=== PATIENT | female | born 1960 | race Hispanic/Latino ===

== ENCOUNTER 2021-07-04 23:04 | Inpatient (IN) | payer OTHER, SELFPAY ==
[2021-07-04 23:38] LABS: Hemoglobin 12.5 g/dL (12.0-16.0); Mean Corpuscular HGB CONC 34.6 g/dL (32.0-36.0); Mean Corpuscular Hemoglobin 29.2 pg (27.0-31.0); Mean Corpuscular Volume 84.4 fL (78.0-98.0); Mean Platelet Volume 8.8 fL (7.4-10.4); Platelet Count 209 thou/uL (130-400); RBC Distribution Width 12.4 % (11.5-14.5); Red Blood Cell (RBC) Count 4.26 mill/uL (4.20-5.40); White Blood Cell (WBC) Count 9.4 thou/uL (4.8-10.8)
[2021-07-04 23:42] LABS: Actual Bicarbonate (HCO3v) 21 mEq/L (22-28); Analyzer IN Cardio ER; Base Excess -2.9 mEq/L (-2.0 to +3.0); Calcium, Ionized (venous) 1.12 mmol/L (1.16-1.32); Chloride (VBG) 100 mmol/L (98-106); Hemoglobin (Hb) 12.6 g/dL (11.7-16.0); Potassium (VBG) 4.81 mmol/L (3.70-5.30); Sodium 134.9 mmol/L (133-146); pH (venous) 7.41 (7.32-7.43)
[2021-07-04 23:52] LABS: Band 18 % (5-11); MDiff Complete? YES; Monocytes 15 % (0-10); Neutrophil 67 % (42-75); Platelet Morphology Comment Appears Adequate; RBC Morphology Normal
[2021-07-05 00:03] LABS: ALT (SGPT) 13 U/L (8-55); AST (SGOT) 13 U/L (5-34); Albumin 3.4 g/dL (3.5-5.0); Alkaline Phosphatase 110 U/L (40-110); Anion Gap 14 mmol/L (10-20); BUN (Urea Nitrogen) 45 mg/dL (9.8-20.1); Bilirubin, Total 0.5 mg/dL (0.2-1.2); Calc. Creatinine Clearance 0 mL/min (70-130); Calcium 9.1 mg/dL (7.8-10.44); Carbon Dioxide 24 mmol/L (22-29); Chloride 102 mmol/L (98-107); Globulin 2.6 g/dL (2.4-3.5); Glucose 294 mg/dL (70-105); Lipase 17 U/L (8-78); Magnesium 1.4 mg/dL (1.6-2.6); Sodium 135 mmol/L (136-145)
[2021-07-05 00:24] LABS: Bacteria/HPF 4+ HPF (None Seen); Bilirubin Negative (Negative); Blood, Urine 2+ (Negative); Clarity Turbid (Clear); Glucose, Urine (Dipstick) 500 mg/dL (Negative); Ketone, Urine Trace mg/dL (Negative); Leukocyte 250 Leu/uL (Negative); Nitrite Negative (Negative); Protein, Urine (Dipstick) 600 mg/dL (Neg-Trace); Renal Epithelial 0-3 HPF (None Seen); Specific Gravity, Urine 1.022 (1.002-1.036); Squamous Epithelial 0-3 HPF (0-3); Urobilinogen Normal mg/dL (Less than 2); WBC/HPF Greater than 50 HPF (0-3); pH, Urine 6.5 (5.0-9.0)
[2021-07-05] MEDS ORDERED: Cefepime 2 GM VIAL ONE ×2 (00:24→10:16)
[2021-07-05] MEDS ORDERED: Acetaminophen 500 MG TAB ONE (00:33)
[2021-07-05 00:49] LABS: Phosphorus 2.7 mg/dL (2.3-4.7)
[2021-07-05] MEDS ORDERED: Vancomycin 1 GM/200 ML BAG ONE (01:07)
[2021-07-05] MEDS ORDERED: Magnesium Sulfate 4 GM in Sodium Chloride 0.9% 250 ML 250 ML IVPB SCH (01:30)
[2021-07-05 02:52] LABS: SARS-CoV-2 NAA Rapid Test Not Detected (NotDetected)
[2021-07-05] MEDS ORDERED: Sodium Chloride 0.9% 1,000 ML IV SCH ×3 (03:00→23:45)
[2021-07-05] MEDS ORDERED: Sodium Chloride 0.9% 500 ML IV SCH (03:00)
[2021-07-05] MEDS ORDERED: Dextrose 50% Abboject 50 ML SYRINGE SLOW IVP PRN (03:01)
[2021-07-05] MEDS ORDERED: Dextrose 5% in Water 1,000 ML IV PRN (03:01)
[2021-07-05] MEDS ORDERED: Ondansetron ODT 4 MG TAB PO PRN (03:02)
[2021-07-05] MEDS ORDERED: Acetaminophen 650 MG Suppository PR PRN (03:02)
[2021-07-05 05:11] LABS: Lactic Acid 1.9 mmol/L (0.5-2.2)
[2021-07-05 05:14] LABS: Band 23 % (5-11); Hemoglobin 9.2 g/dL (12.0-16.0); Hypochromia SLIGHT = 6-15 cells (100X) (0-5/hpf); Lymphocytes 10 % (21-51); MDiff Complete? YES; Mean Corpuscular HGB CONC 33.9 g/dL (32.0-36.0); Mean Corpuscular Hemoglobin 28.9 pg (27.0-31.0); Mean Corpuscular Volume 85.4 fL (78.0-98.0); Mean Platelet Volume 8.8 fL (7.4-10.4); Monocytes 3 % (0-10); Neutrophil 64 % (42-75); Platelet Count 210 thou/uL (130-400); Platelet Morphology Comment Appears Adequate; RBC Distribution Width 12.4 % (11.5-14.5); Red Blood Cell (RBC) Count 3.18 mill/uL (4.20-5.40)
[2021-07-05 05:16] LABS: ALT (SGPT) 11 U/L (8-55); AST (SGOT) 12 U/L (5-34); Albumin 2.6 g/dL (3.5-5.0); Alkaline Phosphatase 77 U/L (40-110); Anion Gap 13 mmol/L (10-20); BUN (Urea Nitrogen) 46 mg/dL (9.8-20.1); Bilirubin, Total 0.2 mg/dL (0.2-1.2); Calc. Creatinine Clearance 0 mL/min (70-130); Calcium 8.1 mg/dL (7.8-10.44); Carbon Dioxide 19 mmol/L (22-29); Chloride 107 mmol/L (98-107); Globulin 2.1 g/dL (2.4-3.5); Glucose 244 mg/dL (70-105); Potassium 4.3 mmol/L (3.5-5.1); Protein, Total 4.7 g/dL (6.0-8.3); Sodium 135 mmol/L (136-145)
[2021-07-05 05:23] LABS: Hemoglobin A1c 9.8 % (4.0-6.0)
[2021-07-05] MEDS: Sodium Chloride 0.9% 1,000 ML IV SCH ×2 (05:25→15:00)
[2021-07-05] MEDS: HumaLOG 300 UNITS/3 ML VIAL SC PRN ×3 (05:29→23:12)
[2021-07-05] MEDS: Enoxaparin Sodium 30 MG/0.3 ML SYRINGE SC SCH (08:54)
[2021-07-05] MEDS ORDERED: Heparin 1,000 UNITS/ML VIAL ONE (10:13)
[2021-07-05 10:17] LABS: Creatinine, Urine 114.68 mg/dL (47-110)
[2021-07-05 10:30] LABS: Base Excess (BEa) -6.4 mEq/L (-2.0 to +3.0); CO2 Tension 27.2 mmHg (35.0-45.0); Carboxyhemoglobin (COHb) 0.2 gm% (0.0-3.0); O2 Tension (PaO2), arterial 60.2 mmHg (80.0-100.0); Potassium - ABG Lab 4.76 mmol/L (3.70-5.30); pH, Arterial 7.41 (7.35-7.45)
[2021-07-05 10:31] LABS: Puncture Site LRA
[2021-07-05] MEDS ORDERED: Sodium Bicarbonate 150 MEQ in Dextrose 5% in Water 1,000 ML IV SCH (10:45)
[2021-07-05 11:57] LABS: Actual Bicarbonate (HCO3v) 19 mEq/L (22-28); Base Excess -6.1 mEq/L (-2.0 to +3.0); Calcium, Ionized (venous) 1.07 mmol/L (1.16-1.32); Chloride (VBG) 103 mmol/L (98-106); Hemoglobin (Hb) 11.2 g/dL (11.7-16.0); Potassium (VBG) 5.14 mmol/L (3.70-5.30); Sodium 133.2 mmol/L (133-146); pH (venous) 7.36 (7.32-7.43)
[2021-07-05] MEDS: Acetaminophen 325 MG TAB PO PRN (13:30)
[2021-07-05] MEDS ORDERED: Norepinephrine 4 MG/4 ML VIAL ONE (14:11)
[2021-07-05] MEDS ORDERED: Norepinephrine 8 MG in Dextrose 5% in Water 242 ML IVPB PRN (14:15)
[2021-07-05 14:29] LABS: Actual Bicarbonate (HCO3a) 19.1 mEq/L (22-28); CO2 Tension 27.8 mmHg (35.0-45.0); Calcium, Ionized (arterial) 1.01 mmol/L (1.12-1.30); Carboxyhemoglobin (COHb) 0.3 gm% (0.0-3.0); Hemoglobin (Hb) 9.4 g/dL (12.0-16.0); O2 Tension (PaO2), arterial 99.8 mmHg (80.0-100.0); Potassium - ABG Lab 3.51 mmol/L (3.70-5.30); pH, Arterial 7.45 (7.35-7.45)
[2021-07-05 14:31] LABS: Puncture Site LBA
[2021-07-05] MEDS ORDERED: MEROPENEM 1 GM/50 ML 1 GM in Premix Bag 1 BAG IVPB SCH (15:00)
[2021-07-05 16:27] LABS: ANA Symphony (Qualitative) Negative (Negative); ANA Symphony (Quantitative) 0.2 Ratio (< 0.7 Negative); dsDNA IgG Antibody 0.6 IU/mL (<10 Negative)
[2021-07-05] MEDS: Ondansetron PF 4 MG/2 ML Vial IVP PRN (20:04)
[2021-07-05] MEDS ORDERED: Morphine 4 MG/ML VIAL SLOW IVP PRN (20:16)
[2021-07-05] MEDS ORDERED: Cefepime 1 GM in Sodium Chloride 0.9% 100 ML IVPB SCH (21:00)
[2021-07-05] MEDS: MEROPENEM 1 GM/50 ML 1 GM in Premix Bag 1 BAG IVPB SCH (23:17)
[2021-07-05 23:18] LABS: Actual Bicarbonate (HCO3a) 18.8 mEq/L (22-28); Base Excess (BEa) -3.9 mEq/L (-2.0 to +3.0); CO2 Tension 26.8 mmHg (35.0-45.0); Carboxyhemoglobin (COHb) 0.3 gm% (0.0-3.0); Hemoglobin (Hb) 9.6 g/dL (12.0-16.0); O2 Tension (PaO2), arterial 61.1 mmHg (80.0-100.0); pH, Arterial 7.47 (7.35-7.45)
[2021-07-05 23:19] LABS: Puncture Site LEFT RADIAL
[2021-07-05 23:41] LABS: Hemoglobin 9.4 g/dL (12.0-16.0); Mean Corpuscular HGB CONC 34.1 g/dL (32.0-36.0); Mean Corpuscular Hemoglobin 29.3 pg (27.0-31.0); Mean Corpuscular Volume 85.7 fL (78.0-98.0); Mean Platelet Volume 9.7 fL (7.4-10.4); Platelet Count 144 thou/uL (130-400); RBC Distribution Width 12.7 % (11.5-14.5); White Blood Cell (WBC) Count 24.2 thou/uL (4.8-10.8)
[2021-07-05 23:58] LABS: Lactic Acid 4.2 mmol/L (0.5-2.2)
[2021-07-06 00:07] LABS: ALT (SGPT) 34 U/L (8-55); AST (SGOT) 44 U/L (5-34); Albumin 2.4 g/dL (3.5-5.0); Alkaline Phosphatase 128 U/L (40-110); Anion Gap 17 mmol/L (10-20); BUN (Urea Nitrogen) 58 mg/dL (9.8-20.1); Bilirubin, Total 0.7 mg/dL (0.2-1.2); Calc. Creatinine Clearance 0 mL/min (70-130); Calcium 7.3 mg/dL (7.8-10.44); Carbon Dioxide 19 mmol/L (22-29); Chloride 102 mmol/L (98-107); Globulin 2.1 g/dL (2.4-3.5); Glucose 291 mg/dL (70-105); Potassium 4.1 mmol/L (3.5-5.1); Protein, Total 4.5 g/dL (6.0-8.3); Sodium 134 mmol/L (136-145)
[2021-07-06] MEDS ORDERED: Lorazepam 2 MG/ML VIAL SLOW IVP SCH (00:15)
[2021-07-06] MEDS ORDERED: Sodium Chloride 0.9% 1,000 ML IV SCH (00:30)
[2021-07-06] MEDS ORDERED: Promethazine HCl 25 MG in Sodium Chloride 0.9% 50 ML IVPB SCH (00:30)
[2021-07-06] MEDS: Sodium Chloride 0.9% 1,000 ML IV SCH ×3 (00:38→21:18)
[2021-07-06 01:42] LABS: Vancomycin, Random 12.4 ug/mL (See Comment)
[2021-07-06] MEDS ORDERED: Vancomycin 1 GM in Premix Bag 1 BAG IVPB SCH ×2 (02:00→21:00)
[2021-07-06] MEDS ORDERED: Vancomycin HCl 750 MG in Sodium Chloride 0.9% 250 ML 250 ML IVPB SCH (02:00)
[2021-07-06 04:15] LABS: Anion Gap 15 mmol/L (10-20); BUN (Urea Nitrogen) 56 mg/dL (9.8-20.1); Calc. Creatinine Clearance 0 mL/min (70-130); Calcium 7.1 mg/dL (7.8-10.44); Carbon Dioxide 20 mmol/L (22-29); Chloride 104 mmol/L (98-107); Glucose 281 mg/dL (70-105); Potassium 4.3 mmol/L (3.5-5.1); Sodium 135 mmol/L (136-145)
[2021-07-06 04:29] LABS: Band 48 % (5-11); Hemoglobin 9.7 g/dL (12.0-16.0); Lymphocytes 4 % (21-51); MDiff Complete? YES; Mean Corpuscular HGB CONC 33.6 g/dL (32.0-36.0); Mean Corpuscular Hemoglobin 29.2 pg (27.0-31.0); Mean Corpuscular Volume 87.2 fL (78.0-98.0); Mean Platelet Volume 9.8 fL (7.4-10.4); Metamyelocyte 3 % (0-0); Monocytes 2 % (0-10); Myelocyte 1 % (0-0); Neutrophil 42 % (42-75); Platelet Count 150 thou/uL (130-400); Platelet Morphology Comment Appears Adequate; RBC Distribution Width 12.9 % (11.5-14.5); Red Blood Cell (RBC) Count 3.31 mill/uL (4.20-5.40); White Blood Cell (WBC) Count 29.2 thou/uL (4.8-10.8)
[2021-07-06] MEDS ORDERED: Sterile Water 10 ML VIAL FS PRN (04:45)
[2021-07-06] MEDS: HumaLOG 300 UNITS/3 ML VIAL SC PRN ×2 (04:54→10:20)
[2021-07-06] MEDS ORDERED: OLANZapine 10 MG VIAL IM SCH (05:00)
[2021-07-06 05:21] LABS: Lactic Acid 3.1 mmol/L (0.5-2.2)
[2021-07-06 10:17] LABS: Lactic Acid 2.7 mmol/L (0.5-2.2)
[2021-07-06] MEDS: Famotidine/PF 20 mg/2ml Vial SLOW IVP SCH (10:19)
[2021-07-06] MEDS: Enoxaparin Sodium 30 MG/0.3 ML SYRINGE SC SCH (10:19)
[2021-07-06] MEDS: MEROPENEM 1 GM/50 ML 1 GM in Premix Bag 1 BAG IVPB SCH (11:17)
[2021-07-06] MEDS: Ondansetron PF 4 MG/2 ML Vial IVP PRN (22:58)
[2021-07-07] MEDS: MEROPENEM 1 GM/50 ML 1 GM in Premix Bag 1 BAG IVPB SCH ×2 (00:15→19:16)
[2021-07-07 04:56] LABS: Band 30 % (5-11); Hemoglobin 8.9 g/dL (12.0-16.0); Lymphocytes 4 % (21-51); MDiff Complete? YES; Mean Corpuscular HGB CONC 34.7 g/dL (32.0-36.0); Mean Corpuscular Hemoglobin 30.1 pg (27.0-31.0); Mean Corpuscular Volume 86.7 fL (78.0-98.0); Mean Platelet Volume 9.7 fL (7.4-10.4); Monocytes 1 % (0-10); Neutrophil 65 % (42-75); Platelet Count 135 thou/uL (130-400); Platelet Morphology Comment Appears Adequate; RBC Distribution Width 13.1 % (11.5-14.5); Red Blood Cell (RBC) Count 2.94 mill/uL (4.20-5.40); White Blood Cell (WBC) Count 26.3 thou/uL (4.8-10.8)
[2021-07-07 05:02] LABS: Anion Gap 15 mmol/L (10-20); BUN (Urea Nitrogen) 62 mg/dL (9.8-20.1); Calc. Creatinine Clearance 21 mL/min (70-130); Calcium 7.1 mg/dL (7.8-10.44); Carbon Dioxide 18 mmol/L (22-29); Chloride 110 mmol/L (98-107); Glucose 122 mg/dL (70-105); Potassium 4.3 mmol/L (3.5-5.1); Sodium 139 mmol/L (136-145)
[2021-07-07] MEDS: Sodium Chloride 0.9% 1,000 ML IV SCH (06:33)
[2021-07-07] MEDS: Enoxaparin Sodium 30 MG/0.3 ML SYRINGE SC SCH (08:03)
[2021-07-07] MEDS: Famotidine/PF 20 mg/2ml Vial SLOW IVP SCH (08:04)
[2021-07-07] MEDS: Sodium Bicarbonate 70 MEQ in Dextrose 5 %-0.45 % NaCl 1,000 ML IV SCH (12:55)
[2021-07-07] MEDS: Meropenem 500 MG in Sodium Chloride 0.9% 100 ML IVPB SCH (14:08)
[2021-07-07] MEDS: HumaLOG 300 UNITS/3 ML VIAL SC PRN ×2 (20:11→23:15)
[2021-07-08] MEDS: Sodium Bicarbonate 70 MEQ in Dextrose 5 %-0.45 % NaCl 1,000 ML IV SCH ×2 (01:42→18:15)
[2021-07-08] MEDS: Meropenem 500 MG in Sodium Chloride 0.9% 100 ML IVPB SCH ×2 (01:43→13:49)
[2021-07-08] MEDS: Labetalol HCl 100 MG/20 ML VIAL SLOW IVP PRN (01:46)
[2021-07-08 04:33] LABS: Anion Gap 15 mmol/L (10-20); BUN (Urea Nitrogen) 64 mg/dL (9.8-20.1); Calc. Creatinine Clearance 24 mL/min (70-130); Calcium 7.7 mg/dL (7.8-10.44); Carbon Dioxide 18 mmol/L (22-29); Chloride 111 mmol/L (98-107); Glucose 212 mg/dL (70-105); Potassium 4.4 mmol/L (3.5-5.1); Sodium 140 mmol/L (136-145)
[2021-07-08] MEDS: HumaLOG 300 UNITS/3 ML VIAL SC PRN ×2 (04:55→21:15)
[2021-07-08 05:38] LABS: Band 8 % (5-11); Eosinophils 3 % (0-10); Hemoglobin 9.2 g/dL (12.0-16.0); Lymphocytes 11 % (21-51); MDiff Complete? YES; Mean Corpuscular HGB CONC 34.1 g/dL (32.0-36.0); Mean Corpuscular Hemoglobin 29.2 pg (27.0-31.0); Mean Corpuscular Volume 85.5 fL (78.0-98.0); Mean Platelet Volume 10.4 fL (7.4-10.4); Metamyelocyte 1 % (0-0); Monocytes 8 % (0-10); Neutrophil 69 % (42-75); Nucleated RBC 1 % (0); Platelet Count 122 thou/uL (130-400); Platelet Morphology Comment Appears Adequate; RBC Distribution Width 13.3 % (11.5-14.5); RBC Morphology Normal; Red Blood Cell (RBC) Count 3.15 mill/uL (4.20-5.40); White Blood Cell (WBC) Count 19.4 thou/uL (4.8-10.8)
[2021-07-08] MEDS ORDERED: FLU VACC QS2021-22(6MOS UP)/PF 60 MCG/0.5 ML SYRINGE IM ONE (09:00)
[2021-07-08] MEDS ORDERED: Ziprasidone 20 MG VIAL IM SCH (09:15)
[2021-07-08] MEDS: Famotidine/PF 20 mg/2ml Vial SLOW IVP SCH (09:32)
[2021-07-08] MEDS: Enoxaparin Sodium 30 MG/0.3 ML SYRINGE SC SCH (09:32)
[2021-07-08] MEDS: hydrALAZINE 20 MG/ML VIAL SLOW IVP PRN (13:48)
[2021-07-08] MEDS: Ziprasidone 20 MG VIAL IM PRN (23:38)
[2021-07-08] MEDS ORDERED: Sterile Water 10 ML ONE (23:41)
[2021-07-09] MEDS: HumaLOG 300 UNITS/3 ML VIAL SC PRN ×4 (00:34→17:49)
[2021-07-09] MEDS: Meropenem 500 MG in Sodium Chloride 0.9% 100 ML IVPB SCH ×2 (02:37→14:17)
[2021-07-09 04:29] LABS: Band 8 % (5-11); Eosinophils 2 % (0-10); Hemoglobin 8.6 g/dL (12.0-16.0); Hypochromia SLIGHT = 6-15 cells (100X) (0-5/hpf); Lymphocytes 13 % (21-51); MDiff Complete? YES; Mean Corpuscular Hemoglobin 28.5 pg (27.0-31.0); Mean Corpuscular Volume 86.3 fL (78.0-98.0); Mean Platelet Volume 10.8 fL (7.4-10.4); Monocytes 7 % (0-10); Neutrophil 70 % (42-75); Platelet Count 102 thou/uL (130-400); Platelet Morphology Comment Appears Decreased; RBC Distribution Width 13.3 % (11.5-14.5); Red Blood Cell (RBC) Count 3.03 mill/uL (4.20-5.40); White Blood Cell (WBC) Count 11.7 thou/uL (4.8-10.8)
[2021-07-09 04:34] LABS: Anion Gap 13 mmol/L (10-20); BUN (Urea Nitrogen) 62 mg/dL (9.8-20.1); Calc. Creatinine Clearance 29 mL/min (70-130); Calcium 7.7 mg/dL (7.8-10.44); Carbon Dioxide 20 mmol/L (22-29); Chloride 113 mmol/L (98-107); Glucose 201 mg/dL (70-105); Potassium 4.2 mmol/L (3.5-5.1); Sodium 142 mmol/L (136-145)
[2021-07-09] MEDS: Sodium Bicarbonate 70 MEQ in Dextrose 5 %-0.45 % NaCl 1,000 ML IV SCH ×2 (07:21→08:29)
[2021-07-09] MEDS: Famotidine/PF 20 mg/2ml Vial SLOW IVP SCH (10:39)
[2021-07-09] MEDS: Enoxaparin Sodium 30 MG/0.3 ML SYRINGE SC SCH (10:39)
[2021-07-09] MEDS: Dextrose 5 %-0.45 % NaCl 1,000 ML IV SCH ×2 (10:40→22:45)
[2021-07-09] MEDS: Ziprasidone 20 MG VIAL IM PRN (11:07)
[2021-07-09] MEDS ORDERED: Sterile Water 10 ML ONE (11:08)
[2021-07-09] MEDS ORDERED: Haloperidol Lactate 5 MG/ML VIAL ONE (14:13)
[2021-07-09] MEDS ORDERED: Haloperidol Lactate 5 MG/ML VIAL SLOW IVP PRN (14:18)
[2021-07-09] MEDS: Senokot S 8.6-50 MG TAB PO SCH (22:31)
[2021-07-10] MEDS: Meropenem 500 MG in Sodium Chloride 0.9% 100 ML IVPB SCH ×2 (01:18→14:00)
[2021-07-10] MEDS: Labetalol HCl 100 MG/20 ML VIAL SLOW IVP PRN (01:38)
[2021-07-10 04:12] LABS: Anion Gap 14 mmol/L (10-20); BUN (Urea Nitrogen) 65 mg/dL (9.8-20.1); Calc. Creatinine Clearance 33 mL/min (70-130); Calcium 8.3 mg/dL (7.8-10.44); Carbon Dioxide 19 mmol/L (22-29); Chloride 112 mmol/L (98-107); Glucose 205 mg/dL (70-105); Potassium 4.4 mmol/L (3.5-5.1); Sodium 141 mmol/L (136-145)
[2021-07-10 04:31] LABS: Syphilis Antibody Nonreactive (Nonreactive); Syphilis Antibody Index 0.08 S/CO (<1.00 Non-Reactive)
[2021-07-10 04:37] LABS: Thyroid Stimulating Hormone 3.2825 uIU/mL (0.35-4.94)
[2021-07-10 04:38] LABS: Band 9 % (5-11); Hemoglobin 9.6 g/dL (12.0-16.0); Lymphocytes 12 % (21-51); MDiff Complete? YES; Mean Corpuscular HGB CONC 34.5 g/dL (32.0-36.0); Mean Corpuscular Hemoglobin 29.6 pg (27.0-31.0); Mean Corpuscular Volume 85.9 fL (78.0-98.0); Mean Platelet Volume 11.3 fL (7.4-10.4); Metamyelocyte 1 % (0-0); Monocytes 12 % (0-10); Myelocyte 1 % (0-0); Neutrophil 63 % (42-75); Nucleated RBC 3 % (0); Platelet Count 115 thou/uL (130-400); Platelet Morphology Comment Appears Decreased; RBC Distribution Width 13.4 % (11.5-14.5); RBC Morphology Normal; Reactive Lymphocytes 2 % (0-10); Red Blood Cell (RBC) Count 3.25 mill/uL (4.20-5.40); White Blood Cell (WBC) Count 11.8 thou/uL (4.8-10.8)
[2021-07-10 04:43] LABS: Vitamin B12 Greater than 2000 pg/mL (211-911)
[2021-07-10] MEDS: Enoxaparin Sodium 30 MG/0.3 ML SYRINGE SC SCH (08:40)
[2021-07-10] MEDS: Famotidine/PF 20 mg/2ml Vial SLOW IVP SCH (08:40)
[2021-07-10] MEDS: HumaLOG 300 UNITS/3 ML VIAL SC PRN ×4 (08:43→20:14)
[2021-07-10] MEDS: Senokot S 8.6-50 MG TAB PO SCH ×2 (09:48→20:14)
[2021-07-10] MEDS: Dextrose 5 %-0.45 % NaCl 1,000 ML IV SCH (11:16)
[2021-07-11] MEDS: Meropenem 500 MG in Sodium Chloride 0.9% 100 ML IVPB SCH (01:06)
[2021-07-11 04:17] LABS: Anion Gap 14 mmol/L (10-20); BUN (Urea Nitrogen) 54 mg/dL (9.8-20.1); Calc. Creatinine Clearance 42 mL/min (70-130); Calcium 8.3 mg/dL (7.8-10.44); Carbon Dioxide 19 mmol/L (22-29); Chloride 113 mmol/L (98-107); Glucose 149 mg/dL (70-105); Potassium 4.1 mmol/L (3.5-5.1); Sodium 142 mmol/L (136-145)
[2021-07-11 04:57] LABS: Band 6 % (5-11); Eosinophils 5 % (0-10); Hemoglobin 10.8 g/dL (12.0-16.0); Lymphocytes 17 % (21-51); MDiff Complete? YES; Mean Corpuscular HGB CONC 33.6 g/dL (32.0-36.0); Mean Corpuscular Volume 86.2 fL (78.0-98.0); Monocytes 9 % (0-10); Myelocyte 1 % (0-0); Neutrophil 60 % (42-75); Platelet Count 164 thou/uL (130-400); Platelet Morphology Comment Appears Adequate; RBC Distribution Width 13.4 % (11.5-14.5); RBC Morphology Normal; Reactive Lymphocytes 1 % (0-10); Red Blood Cell (RBC) Count 3.74 mill/uL (4.20-5.40)
[2021-07-11] MEDS: hydrALAZINE 20 MG/ML VIAL SLOW IVP PRN (07:55)
[2021-07-11] MEDS: Enoxaparin Sodium 30 MG/0.3 ML SYRINGE SC SCH (09:28)
[2021-07-11] MEDS: Famotidine/PF 20 mg/2ml Vial SLOW IVP SCH (09:28)
[2021-07-11] MEDS: Senokot S 8.6-50 MG TAB PO SCH ×2 (09:28→20:37)
[2021-07-11] MEDS: HumaLOG 300 UNITS/3 ML VIAL SC PRN ×3 (09:29→16:35)
[2021-07-11] MEDS ORDERED: Meropenem 1 GM in Sodium Chloride 0.9% 100 ML IVPB SCH (13:00)
[2021-07-11] MEDS: Labetalol HCl 100 MG/20 ML VIAL SLOW IVP PRN (13:15)
[2021-07-11] MEDS ORDERED: Amlodipine 5 MG TAB PO SCH (14:15)
[2021-07-11] MEDS ORDERED: Furosemide 20 MG/2 ML VIAL SLOW IVP SCH (14:30)
[2021-07-11] MEDS: Dextrose 5 %-0.45 % NaCl 1,000 ML IV SCH (16:06)
[2021-07-11] MEDS: Metoprolol Tartrate 25 MG TAB PO SCH (20:37)
[2021-07-11] MEDS: Polyethylene Glycol 3350 17 GM Packet PO PRN (20:37)
[2021-07-12] MEDS: MEROPENEM 1 GM/50 ML 1 GM in Premix Bag 1 BAG IVPB SCH ×2 (01:58→20:17)
[2021-07-12 04:07] LABS: Hemoglobin 10.9 g/dL (12.0-16.0); Mean Corpuscular HGB CONC 34.3 g/dL (32.0-36.0); Mean Corpuscular Hemoglobin 29.3 pg (27.0-31.0); Mean Corpuscular Volume 85.2 fL (78.0-98.0); Mean Platelet Volume 9.8 fL (7.4-10.4); Platelet Count 226 thou/uL (130-400); RBC Distribution Width 13.4 % (11.5-14.5); Red Blood Cell (RBC) Count 3.72 mill/uL (4.20-5.40); White Blood Cell (WBC) Count 18.1 thou/uL (4.8-10.8)
[2021-07-12 04:23] LABS: Anion Gap 15 mmol/L (10-20); BUN (Urea Nitrogen) 43 mg/dL (9.8-20.1); Calc. Creatinine Clearance 50 mL/min (70-130); Calcium 8.1 mg/dL (7.8-10.44); Carbon Dioxide 20 mmol/L (22-29); Chloride 112 mmol/L (98-107); Glucose 166 mg/dL (70-105); Sodium 143 mmol/L (136-145)
[2021-07-12 05:14] LABS: Band 4 % (5-11); Eosinophils 2 % (0-10); Lymphocytes 14 % (21-51); MDiff Complete? YES; Monocytes 8 % (0-10); Neutrophil 71 % (42-75); Reactive Lymphocytes 1 % (0-10)
[2021-07-12] MEDS ORDERED: Amlodipine 5 MG TAB PO SCH (09:00)
[2021-07-12] MEDS: Amlodipine 5 MG TAB PO SCH (09:15)
[2021-07-12] MEDS: Famotidine 20 MG TAB PO SCH (09:15)
[2021-07-12] MEDS: Metoprolol Tartrate 25 MG TAB PO SCH ×2 (09:15→20:17)
[2021-07-12] MEDS: Senokot S 8.6-50 MG TAB PO SCH ×2 (09:15→20:17)
[2021-07-12] MEDS: Enoxaparin Sodium 40 MG/0.4 ML SYRINGE SC SCH (09:16)
[2021-07-12 14:26] LABS: SARS-CoV-2 PCR by NAA Not Detected (NotDetected)
[2021-07-12] MEDS: HumaLOG 300 UNITS/3 ML VIAL SC PRN (17:22)
[2021-07-12] MEDS: hydrALAZINE 20 MG/ML VIAL SLOW IVP PRN (20:16)
[2021-07-13] MEDS: hydrALAZINE 20 MG/ML VIAL SLOW IVP PRN (06:35)
[2021-07-13 06:56] LABS: #Basophils 0.1 thou/uL (0.0-0.2); #Eosinphils 0.4 thou/uL (0.0-0.7); #Lymphocytes 2.7 thou/uL (1.20-3.40); #Monocytes 1.4 thou/uL (0.11-0.59); #Neutrophils 11.1 thou/uL (1.40-6.50); %Basophils 0.6 % (0.0-1.0); %Eosinophils 2.3 % (0.0-10.0); %Lymphocytes 17.2 % (21.0-51.0); %Monocytes 8.9 % (0.0-10.0); Hemoglobin 9.4 g/dL (12.0-16.0); Mean Corpuscular HGB CONC 33.5 g/dL (32.0-36.0); Mean Corpuscular Hemoglobin 28.8 pg (27.0-31.0); Platelet Count 228 thou/uL (130-400); RBC Distribution Width 13.3 % (11.5-14.5); Red Blood Cell (RBC) Count 3.27 mill/uL (4.20-5.40); White Blood Cell (WBC) Count 15.7 thou/uL (4.8-10.8)
[2021-07-13 07:01] LABS: Anion Gap 13 mmol/L (10-20); BUN (Urea Nitrogen) 37 mg/dL (9.8-20.1); Calc. Creatinine Clearance 58 mL/min (70-130); Calcium 8.3 mg/dL (7.8-10.44); Carbon Dioxide 22 mmol/L (22-29); Chloride 113 mmol/L (98-107); Glucose 164 mg/dL (70-105); Potassium 3.9 mmol/L (3.5-5.1); Sodium 144 mmol/L (136-145)
[2021-07-13] MEDS: Senokot S 8.6-50 MG TAB PO SCH ×2 (08:17→20:49)
[2021-07-13] MEDS: Metoprolol Tartrate 25 MG TAB PO SCH ×2 (08:17→20:52)
[2021-07-13] MEDS: Amlodipine 5 MG TAB PO SCH (08:17)
[2021-07-13] MEDS: Famotidine 20 MG TAB PO SCH (08:17)
[2021-07-13] MEDS: Enoxaparin Sodium 40 MG/0.4 ML SYRINGE SC SCH (08:18)
[2021-07-13] MEDS: MEROPENEM 1 GM/50 ML 1 GM in Premix Bag 1 BAG IVPB SCH ×3 (08:52→20:57)
[2021-07-13] MEDS: HumaLOG 300 UNITS/3 ML VIAL SC PRN ×2 (10:53→17:43)
[2021-07-13] MEDS: Acetaminophen 325 MG TAB PO PRN (21:16)
[2021-07-14] MEDS: Acetaminophen 325 MG TAB PO PRN (01:04)
[2021-07-14] MEDS: hydrALAZINE 20 MG/ML VIAL SLOW IVP PRN (05:25)
[2021-07-14 06:38] LABS: #Eosinphils 0.2 thou/uL (0.0-0.7); #Lymphocytes 2.2 thou/uL (1.20-3.40); #Monocytes 1.1 thou/uL (0.11-0.59); #Neutrophils 8.4 thou/uL (1.40-6.50); %Basophils 0.2 % (0.0-1.0); %Eosinophils 1.6 % (0.0-10.0); %Lymphocytes 18.7 % (21.0-51.0); %Monocytes 9.5 % (0.0-10.0); %Neutrophils 70.1 % (42.0-75.0); Hemoglobin 9.2 g/dL (12.0-16.0); Mean Corpuscular HGB CONC 33.3 g/dL (32.0-36.0); Mean Platelet Volume 9.8 fL (7.4-10.4); Platelet Count 199 thou/uL (130-400); RBC Distribution Width 13.5 % (11.5-14.5); Red Blood Cell (RBC) Count 3.17 mill/uL (4.20-5.40); White Blood Cell (WBC) Count 11.9 thou/uL (4.8-10.8)
[2021-07-14 07:00] LABS: Anion Gap 11 mmol/L (10-20); BUN (Urea Nitrogen) 36 mg/dL (9.8-20.1); Calc. Creatinine Clearance 62 mL/min (70-130); Calcium 8.1 mg/dL (7.8-10.44); Carbon Dioxide 23 mmol/L (22-29); Chloride 110 mmol/L (98-107); Glucose 156 mg/dL (70-105); Potassium 3.8 mmol/L (3.5-5.1); Sodium 140 mmol/L (136-145)
[2021-07-14] MEDS: Enoxaparin Sodium 40 MG/0.4 ML SYRINGE SC SCH (08:35)
[2021-07-14] MEDS: MEROPENEM 1 GM/50 ML 1 GM in Premix Bag 1 BAG IVPB SCH ×2 (08:35→20:02)
[2021-07-14] MEDS: Famotidine 20 MG TAB PO SCH (08:36)
[2021-07-14] MEDS: Metoprolol Tartrate 25 MG TAB PO SCH ×2 (08:36→20:02)
[2021-07-14] MEDS: Amlodipine 5 MG TAB PO SCH (08:36)
[2021-07-14] MEDS: Senokot S 8.6-50 MG TAB PO SCH ×2 (08:36→20:03)
[2021-07-14] MEDS ORDERED: Bisacodyl 10 MG SUPP PR SCH (10:45)
[2021-07-14] MEDS ORDERED: Magnesium Citrate 300 ML BOT PO SCH (10:45)
[2021-07-14] MEDS: HumaLOG 300 UNITS/3 ML VIAL SC PRN (12:36)
[2021-07-15] MEDS: hydrALAZINE 20 MG/ML VIAL SLOW IVP PRN (05:32)
[2021-07-15 06:14] LABS: #Basophils 0.1 thou/uL (0.0-0.2); #Eosinphils 0.2 thou/uL (0.0-0.7); #Monocytes 0.9 thou/uL (0.11-0.59); #Neutrophils 7.9 thou/uL (1.40-6.50); %Basophils 0.5 % (0.0-1.0); %Eosinophils 2.2 % (0.0-10.0); %Lymphocytes 18.4 % (21.0-51.0); %Monocytes 8.1 % (0.0-10.0); %Neutrophils 70.9 % (42.0-75.0); Hemoglobin 9.2 g/dL (12.0-16.0); Mean Corpuscular HGB CONC 32.8 g/dL (32.0-36.0); Mean Corpuscular Hemoglobin 28.2 pg (27.0-31.0); Mean Corpuscular Volume 86.2 fL (78.0-98.0); Mean Platelet Volume 9.5 fL (7.4-10.4); Platelet Count 215 thou/uL (130-400); RBC Distribution Width 13.4 % (11.5-14.5); Red Blood Cell (RBC) Count 3.24 mill/uL (4.20-5.40); White Blood Cell (WBC) Count 11.1 thou/uL (4.8-10.8)
[2021-07-15 06:33] LABS: Anion Gap 12 mmol/L (10-20); BUN (Urea Nitrogen) 32 mg/dL (9.8-20.1); Calc. Creatinine Clearance 69 mL/min (70-130); Calcium 7.7 mg/dL (7.8-10.44); Carbon Dioxide 22 mmol/L (22-29); Chloride 110 mmol/L (98-107); Glucose 144 mg/dL (70-105); Potassium 3.9 mmol/L (3.5-5.1); Sodium 140 mmol/L (136-145)
[2021-07-15] MEDS: Enoxaparin Sodium 40 MG/0.4 ML SYRINGE SC SCH (08:45)
[2021-07-15] MEDS: MEROPENEM 1 GM/50 ML 1 GM in Premix Bag 1 BAG IVPB SCH ×3 (08:45→23:30)
[2021-07-15] MEDS: Senokot S 8.6-50 MG TAB PO SCH ×2 (08:45→20:37)
[2021-07-15] MEDS: Famotidine 20 MG TAB PO SCH (08:46)
[2021-07-15] MEDS: Acetaminophen 325 MG TAB PO PRN (08:46)
[2021-07-15] MEDS: Metoprolol Tartrate 25 MG TAB PO SCH ×2 (08:46→20:35)
[2021-07-15] MEDS: Amlodipine 5 MG TAB PO SCH (08:46)
[2021-07-15] MEDS: HumaLOG 300 UNITS/3 ML VIAL SC PRN (20:37)
[2021-07-16] MEDS: HumaLOG 300 UNITS/3 ML VIAL SC PRN ×3 (06:07→20:38)
[2021-07-16 06:47] LABS: #Basophils 0.1 thou/uL (0.0-0.2); #Eosinphils 0.2 thou/uL (0.0-0.7); #Lymphocytes 1.9 thou/uL (1.20-3.40); #Monocytes 0.7 thou/uL (0.11-0.59); #Neutrophils 6.9 thou/uL (1.40-6.50); %Basophils 0.9 % (0.0-1.0); %Eosinophils 2.1 % (0.0-10.0); %Monocytes 7.3 % (0.0-10.0); %Neutrophils 70.7 % (42.0-75.0); Hemoglobin 8.8 g/dL (12.0-16.0); Mean Corpuscular HGB CONC 33.4 g/dL (32.0-36.0); Mean Corpuscular Hemoglobin 28.9 pg (27.0-31.0); Mean Corpuscular Volume 86.6 fL (78.0-98.0); Mean Platelet Volume 9.4 fL (7.4-10.4); Platelet Count 208 thou/uL (130-400); RBC Distribution Width 13.2 % (11.5-14.5); Red Blood Cell (RBC) Count 3.03 mill/uL (4.20-5.40); White Blood Cell (WBC) Count 9.7 thou/uL (4.8-10.8)
[2021-07-16 07:20] LABS: Anion Gap 11 mmol/L (10-20); BUN (Urea Nitrogen) 32 mg/dL (9.8-20.1); Calc. Creatinine Clearance 62 mL/min (70-130); Calcium 8.2 mg/dL (7.8-10.44); Carbon Dioxide 24 mmol/L (22-29); Chloride 108 mmol/L (98-107); Glucose 167 mg/dL (70-105); Potassium 3.7 mmol/L (3.5-5.1); Sodium 139 mmol/L (136-145)
[2021-07-16] MEDS: Senokot S 8.6-50 MG TAB PO SCH ×2 (07:38→20:38)
[2021-07-16] MEDS: MEROPENEM 1 GM/50 ML 1 GM in Premix Bag 1 BAG IVPB SCH ×2 (07:38→20:37)
[2021-07-16] MEDS: Metoprolol Tartrate 25 MG TAB PO SCH ×2 (07:39→20:37)
[2021-07-16] MEDS: Acetaminophen 325 MG TAB PO PRN (07:39)
[2021-07-16] MEDS: Amlodipine 5 MG TAB PO SCH (07:39)
[2021-07-16] MEDS: Famotidine 20 MG TAB PO SCH (07:39)
[2021-07-16] MEDS: Enoxaparin Sodium 40 MG/0.4 ML SYRINGE SC SCH (07:40)
[2021-07-16 12:11] VITALS: BMI 34.0
[2021-07-16] MEDS: Polyethylene Glycol 3350 17 GM Packet PO PRN (15:09)
[2021-07-16] MEDS: hydrALAZINE 20 MG/ML VIAL SLOW IVP PRN (17:48)
[2021-07-17] MEDS: HumaLOG 300 UNITS/3 ML VIAL SC PRN ×2 (06:17→22:16)
[2021-07-17 06:37] LABS: #Basophils 0.1 thou/uL (0.0-0.2); #Eosinphils 0.2 thou/uL (0.0-0.7); #Lymphocytes 1.7 thou/uL (1.20-3.40); #Monocytes 0.7 thou/uL (0.11-0.59); #Neutrophils 6.2 thou/uL (1.40-6.50); %Basophils 1.3 % (0.0-1.0); %Lymphocytes 19.1 % (21.0-51.0); %Monocytes 8.2 % (0.0-10.0); %Neutrophils 69.5 % (42.0-75.0); Hemoglobin 8.7 g/dL (12.0-16.0); Mean Corpuscular HGB CONC 33.1 g/dL (32.0-36.0); Mean Corpuscular Hemoglobin 28.4 pg (27.0-31.0); Mean Corpuscular Volume 85.8 fL (78.0-98.0); Mean Platelet Volume 9.1 fL (7.4-10.4); Platelet Count 211 thou/uL (130-400); RBC Distribution Width 13.3 % (11.5-14.5); Red Blood Cell (RBC) Count 3.05 mill/uL (4.20-5.40); White Blood Cell (WBC) Count 8.9 thou/uL (4.8-10.8)
[2021-07-17 06:50] LABS: Anion Gap 10 mmol/L (10-20); BUN (Urea Nitrogen) 32 mg/dL (9.8-20.1); Calc. Creatinine Clearance 63 mL/min (70-130); Calcium 8.1 mg/dL (7.8-10.44); Carbon Dioxide 25 mmol/L (22-29); Chloride 107 mmol/L (98-107); Glucose 172 mg/dL (70-105); Potassium 4.1 mmol/L (3.5-5.1); Sodium 138 mmol/L (136-145)
[2021-07-17] MEDS ORDERED: Amlodipine 5 MG TAB PO SCH (07:21)
[2021-07-17] MEDS: Polyethylene Glycol 3350 17 GM Packet PO PRN (08:03)
[2021-07-17] MEDS: MEROPENEM 1 GM/50 ML 1 GM in Premix Bag 1 BAG IVPB SCH ×2 (08:03→20:48)
[2021-07-17] MEDS: Metoprolol Tartrate 25 MG TAB PO SCH ×2 (08:04→20:48)
[2021-07-17] MEDS: hydrALAZINE 20 MG/ML VIAL SLOW IVP PRN (08:04)
[2021-07-17] MEDS: Enoxaparin Sodium 40 MG/0.4 ML SYRINGE SC SCH (08:04)
[2021-07-17] MEDS: Senokot S 8.6-50 MG TAB PO SCH ×2 (08:05→20:48)
[2021-07-17] MEDS: Amlodipine 10 MG TAB PO SCH (08:05)
[2021-07-17] MEDS: Famotidine 20 MG TAB PO SCH (08:05)
[2021-07-17] MEDS: Acetaminophen 325 MG TAB PO PRN (08:05)
[2021-07-17] MEDS ORDERED: Magnesium Citrate 300 ML BOT PO SCH (09:45)
[2021-07-18] MEDS: HumaLOG 300 UNITS/3 ML VIAL SC PRN (06:23)
[2021-07-18 06:58] LABS: #Basophils 0.1 thou/uL (0.0-0.2); #Eosinphils 0.2 thou/uL (0.0-0.7); #Lymphocytes 1.7 thou/uL (1.20-3.40); #Monocytes 0.7 thou/uL (0.11-0.59); #Neutrophils 5.6 thou/uL (1.40-6.50); %Basophils 1.3 % (0.0-1.0); %Eosinophils 2.6 % (0.0-10.0); %Lymphocytes 20.5 % (21.0-51.0); %Monocytes 8.1 % (0.0-10.0); %Neutrophils 67.6 % (42.0-75.0); Hemoglobin 8.6 g/dL (12.0-16.0); Mean Corpuscular HGB CONC 32.9 g/dL (32.0-36.0); Mean Corpuscular Hemoglobin 28.1 pg (27.0-31.0); Mean Corpuscular Volume 85.5 fL (78.0-98.0); Mean Platelet Volume 8.9 fL (7.4-10.4); Platelet Count 219 thou/uL (130-400); RBC Distribution Width 13.1 % (11.5-14.5); Red Blood Cell (RBC) Count 3.06 mill/uL (4.20-5.40); White Blood Cell (WBC) Count 8.3 thou/uL (4.8-10.8)
[2021-07-18 07:21] LABS: Anion Gap 12 mmol/L (10-20); BUN (Urea Nitrogen) 28 mg/dL (9.8-20.1); Calc. Creatinine Clearance 78 mL/min (70-130); Calcium 8.8 mg/dL (7.8-10.44); Carbon Dioxide 22 mmol/L (22-29); Chloride 109 mmol/L (98-107); Glucose 174 mg/dL (70-105); Potassium 4.3 mmol/L (3.5-5.1); Sodium 139 mmol/L (136-145)
[2021-07-18] MEDS: Metoprolol Tartrate 25 MG TAB PO SCH (08:46)
[2021-07-18] MEDS: Senokot S 8.6-50 MG TAB PO SCH (08:46)
[2021-07-18] MEDS: Amlodipine 10 MG TAB PO SCH (08:46)
[2021-07-18] MEDS: MEROPENEM 1 GM/50 ML 1 GM in Premix Bag 1 BAG IVPB SCH (08:47)
[2021-07-18] MEDS: Famotidine 20 MG TAB PO SCH (08:47)
[2021-07-18] MEDS: Enoxaparin Sodium 40 MG/0.4 ML SYRINGE SC SCH (08:48)
[2021-07-18] MEDS: Acetaminophen 325 MG TAB PO PRN (08:57)
[2021-07-18] MEDS: Ondansetron PF 4 MG/2 ML Vial IVP PRN (08:58)
[2021-07-18] MEDS ORDERED: Lidocaine 2% Viscous Solution 20 ML, Aluminum & Magnesium Hydroxide 30 ML, Donnatal Eli... SSW SCH (10:00)
[2021-07-18 13:18] VITALS: BP 178/80
[2021-07-18 14:03] VITALS: TEMP 97.8
[2021-07-18] MEDS ORDERED: MEROPENEM 1 GM/50 ML 1 GM in Premix Bag 1 BAG IVPB SCH (17:00)
== END 2021-07-18 15:21 | disposition home or self-care (01) | DRG 871 ==
LOC: ERS 23:04 → T4-B 07-05 01:29 → CCU 07-05 10:34 → IMCU/EMU 07-11 16:30 → T4-B 07-12 15:19
PROVIDERS: ADMIT Student in an Organized Health Care Education/Training Program; ATTEND Family Medicine
PROC: 3E033XZ Introduction of Vasopressor into Peripheral Vein, Percutaneous Approach (ICD-10-PCS; principal; 2021-07-05)
PROC: 06HY33Z Insertion of Infusion Device into Lower Vein, Percutaneous Approach (ICD-10-PCS; 2021-07-05)
PROC: 02HV33Z Insertion of Infusion Device into Superior Vena Cava, Percutaneous Approach (ICD-10-PCS; 2021-07-12)
PROC: B5181ZA Fluoroscopy of Superior Vena Cava using Low Osmolar Contrast, Guidance (ICD-10-PCS; 2021-07-12)
PROC: B548ZZA Ultrasonography of Superior Vena Cava, Guidance (ICD-10-PCS; 2021-07-12)
DX: A41.51 Sepsis due to Escherichia coli [E. coli] (principal); Z20.822 Contact with and (suspected) exposure to COVID-19; R65.21 Severe sepsis with septic shock; G93.41 Metabolic encephalopathy; E87.1 Hypo-osmolality and hyponatremia; N17.9 Acute kidney failure, unspecified; E87.2 Acidosis; N18.4 Chronic kidney disease, stage 4 (severe); Z16.24 Resistance to multiple antibiotics; F05 Delirium due to known physiological condition; N39.0 Urinary tract infection, site not specified; M17.11 Unilateral primary osteoarthritis, right knee; N18.30 Chronic kidney disease, stage 3 unspecified; E11.22 Type 2 diabetes mellitus with diabetic chronic kidney disease; I12.9 Hypertensive chronic kidney disease with stage 1 through stage 4 chronic kidney disease, or unspecified chronic kidney disease; E88.09 Other disorders of plasma-protein metabolism, not elsewhere classified; D63.1 Anemia in chronic kidney disease; R80.9 Proteinuria, unspecified; E87.8 Other disorders of electrolyte and fluid balance, not elsewhere classified; I16.0 Hypertensive urgency; Z78.1 Physical restraint status
CPT/HCPCS: 36415; 36416; 36569; 36600; 70450; 71045; 76770; 80048; 80053; 80202; 81003; 81015; 82010; 82140; 82306; 82570; 82607; 82746; 82805; 83036; 83605; 83690; 83735; 83970; 84100; 84156; 84443; 84484; 85025; 86038; 86225; 86780; 87040; 87077; 87086; 87149; 87186; 93005; 96365; 96375; C1751; J0360; J0692; J1630; J1644; J1650; J1815; J1940; J2060; J2185; J2270; J2358; J2405; J2550; J3370; J3475; J3486; J3490; J7042; J7050; J7070; S0028; U0002; U0003; U0005

== ENCOUNTER 2021-08-04 13:26 | Inpatient (IN) | payer OTHER, SELFPAY ==
[2021-08-04] MEDS ORDERED: Aspirin Chewable 81 MG TAB ONE (14:55)
[2021-08-04] MEDS ORDERED: Nitroglycerin 2% Ointment 1 INCH/1 GM Packet ONE (14:55)
[2021-08-04 15:05] LABS: Hemoglobin 10.9 g/dL (12.0-16.0); Mean Corpuscular HGB CONC 34.8 g/dL (32.0-36.0); Mean Corpuscular Hemoglobin 28.3 pg (27.0-31.0); Mean Corpuscular Volume 81.3 fL (78.0-98.0); Mean Platelet Volume 8.3 fL (7.4-10.4); Platelet Count 305 thou/uL (130-400); RBC Distribution Width 13.9 % (11.5-14.5); Red Blood Cell (RBC) Count 3.86 mill/uL (4.20-5.40); White Blood Cell (WBC) Count 20.9 thou/uL (4.8-10.8)
[2021-08-04 15:20] LABS: Band 5 % (5-11); Eosinophils 1 % (0-10); Lymphocytes 3 % (21-51); MDiff Complete? YES; Monocytes 2 % (0-10); Neutrophil 88 % (42-75); Platelet Morphology Comment Appears Adequate; Polychromasia SLIGHT = 2-3 cells (100X) (0-2/hpf); Reactive Lymphocytes 1 % (0-10)
[2021-08-04 15:28] LABS: ALT (SGPT) 11 U/L (8-55); AST (SGOT) 11 U/L (5-34); Alkaline Phosphatase 137 U/L (40-110); Anion Gap 13 mmol/L (10-20); BUN (Urea Nitrogen) 38 mg/dL (9.8-20.1); Bilirubin, Total 0.4 mg/dL (0.2-1.2); Calc. Creatinine Clearance 0 mL/min (70-130); Calcium 9.1 mg/dL (7.8-10.44); Carbon Dioxide 22 mmol/L (22-29); Chloride 102 mmol/L (98-107); Globulin 3.2 g/dL (2.4-3.5); Glucose 367 mg/dL (70-105); Lipase 365 U/L (8-78); Potassium 3.5 mmol/L (3.5-5.1); Protein, Total 6.2 g/dL (6.0-8.3); Sodium 133 mmol/L (136-145)
[2021-08-04] MEDS ORDERED: cefTRIAXone\\ROCEPHIN 2 GM VIAL ONE (16:15)
[2021-08-04 16:44] LABS: Bacteria/HPF None Seen HPF (None Seen); Bilirubin Negative (Negative); Blood, Urine 1+ (Negative); Clarity Clear (Clear); Glucose, Urine (Dipstick) Greater than 1000 mg/dL (Negative); Ketone, Urine Negative (Negative); Leukocyte Negative Leu/uL (Negative); Nitrite Negative (Negative); Protein, Urine (Dipstick) 300 mg/dL (Neg-Trace); RBC/HPF 0-3 HPF (0-3); Specific Gravity, Urine 1.019 (1.002-1.036); Squamous Epithelial 0-3 HPF (0-3); Urobilinogen Normal mg/dL (Less than 2); WBC/HPF 0-3 HPF (0-3); pH, Urine 6.5 (5.0-9.0)
[2021-08-04 19:18] LABS: SARS-CoV-2 NAA Rapid Test Not Detected (NotDetected)
[2021-08-04 19:33] VITALS: BMI 32.8
[2021-08-04 21:20] LABS: Troponin I Less than 0.010 ng/mL (< 0.028)
[2021-08-04] MEDS ORDERED: Dextrose 50% Abboject 50 ML SYRINGE SLOW IVP PRN (21:39)
[2021-08-04] MEDS ORDERED: HYDROcodone/Acetaminophen 7.5/325 mg Tablet PO PRN (21:39)
[2021-08-04] MEDS ORDERED: Dextrose 5% in Water 1,000 ML IV PRN (21:39)
[2021-08-04] MEDS ORDERED: Bisacodyl 5 MG TAB PO PRN (21:39)
[2021-08-04] MEDS ORDERED: hydrALAZINE 20 MG/ML VIAL SLOW IVP PRN (21:51)
[2021-08-04] MEDS ORDERED: Melatonin 3 MG TAB PO PRN (21:51)
[2021-08-04] MEDS ORDERED: Furosemide 40 MG/4 ML VIAL SLOW IVP SCH (22:30)
[2021-08-04] MEDS ORDERED: Enoxaparin Sodium 30 MG/0.3 ML SYRINGE SC SCH (22:30)
[2021-08-04] MEDS: Labetalol HCl 100 MG/20 ML VIAL SLOW IVP PRN (22:37)
[2021-08-04] MEDS: HumaLOG 300 UNITS/3 ML VIAL SC PRN (22:39)
[2021-08-05] MEDS ORDERED: Piperacillin/Tazobactam 3.375 GM in Sodium Chloride 0.9% 100 ML IVPB SCH ×2 (01:30→06:00)
[2021-08-05] MEDS: Labetalol HCl 100 MG/20 ML VIAL SLOW IVP PRN (04:05)
[2021-08-05 06:00] LABS: #Eosinphils 0.1 thou/uL (0.0-0.7); #Lymphocytes 1.1 thou/uL (1.20-3.40); #Monocytes 0.7 thou/uL (0.11-0.59); #Neutrophils 11.9 thou/uL (1.40-6.50); %Basophils 0.2 % (0.0-1.0); %Eosinophils 0.9 % (0.0-10.0); %Lymphocytes 8.1 % (21.0-51.0); %Monocytes 4.8 % (0.0-10.0); Hemoglobin 9.6 g/dL (12.0-16.0); Mean Corpuscular HGB CONC 34.3 g/dL (32.0-36.0); Mean Corpuscular Hemoglobin 28.5 pg (27.0-31.0); Mean Platelet Volume 8.1 fL (7.4-10.4); Platelet Count 230 thou/uL (130-400); RBC Distribution Width 14.1 % (11.5-14.5); Red Blood Cell (RBC) Count 3.35 mill/uL (4.20-5.40); White Blood Cell (WBC) Count 13.8 thou/uL (4.8-10.8)
[2021-08-05 06:19] LABS: ALT (SGPT) 11 U/L (8-55); AST (SGOT) 11 U/L (5-34); Albumin 2.5 g/dL (3.5-5.0); Alkaline Phosphatase 119 U/L (40-110); Anion Gap 11 mmol/L (10-20); BUN (Urea Nitrogen) 32 mg/dL (9.8-20.1); Bilirubin, Total 0.3 mg/dL (0.2-1.2); Calc. Creatinine Clearance 46 mL/min (70-130); Calcium 8.6 mg/dL (7.8-10.44); Carbon Dioxide 22 mmol/L (22-29); Chloride 103 mmol/L (98-107); Globulin 3.1 g/dL (2.4-3.5); Glucose 360 mg/dL (70-105); Potassium 3.2 mmol/L (3.5-5.1); Protein, Total 5.6 g/dL (6.0-8.3); Sodium 133 mmol/L (136-145)
[2021-08-05] MEDS: HumaLOG 300 UNITS/3 ML VIAL SC PRN ×4 (07:18→21:17)
[2021-08-05] MEDS: Metoprolol Tartrate 50 MG TAB PO SCH ×2 (07:19→21:17)
[2021-08-05] MEDS: Furosemide 20 MG/2 ML VIAL SLOW IVP SCH ×2 (07:19→17:39)
[2021-08-05] MEDS: Amlodipine 10 MG TAB PO SCH (07:19)
[2021-08-05] MEDS: Famotidine/PF 20 mg/2ml Vial SLOW IVP SCH (11:17)
[2021-08-05] MEDS: hydrALAZINE 25 MG TAB PO SCH ×3 (11:17→21:17)
[2021-08-05] MEDS: HYDROcodone/Acetaminophen 5/325 mg Tablet PO PRN ×2 (11:18→21:21)
[2021-08-05] MEDS: Senokot S 8.6-50 MG TAB PO SCH ×2 (11:19→21:17)
[2021-08-05] MEDS ORDERED: Mineral Oil ENEMA PR SCH (13:30)
[2021-08-05] MEDS ORDERED: cefTRIAXone\\ROCEPHIN 2 GM in Sodium Chloride 0.9% 100 ML IVPB SCH (16:00)
[2021-08-05] MEDS: Enoxaparin Sodium 30 MG/0.3 ML SYRINGE SC SCH (21:17)
[2021-08-05] MEDS ORDERED: Senokot S 8.6-50 MG TAB PO SCH (21:39)
[2021-08-06] MEDS: Furosemide 20 MG/2 ML VIAL SLOW IVP SCH ×2 (05:46→17:31)
[2021-08-06] MEDS: HumaLOG 300 UNITS/3 ML VIAL SC PRN ×3 (05:46→17:31)
[2021-08-06 08:14] LABS: Anion Gap 11 mmol/L (10-20); BUN (Urea Nitrogen) 31 mg/dL (9.8-20.1); Calc. Creatinine Clearance 31 mL/min (70-130); Carbon Dioxide 23 mmol/L (22-29); Chloride 104 mmol/L (98-107); Glucose 171 mg/dL (70-105); Potassium 3.3 mmol/L (3.5-5.1); Sodium 135 mmol/L (136-145)
[2021-08-06] MEDS: Metoprolol Tartrate 50 MG TAB PO SCH ×2 (08:33→21:38)
[2021-08-06] MEDS: Famotidine/PF 20 mg/2ml Vial SLOW IVP SCH (08:33)
[2021-08-06] MEDS: hydrALAZINE 25 MG TAB PO SCH ×3 (08:33→21:37)
[2021-08-06] MEDS: Amlodipine 10 MG TAB PO SCH (08:33)
[2021-08-06] MEDS: Senokot S 8.6-50 MG TAB PO SCH ×2 (08:34→21:38)
[2021-08-06] MEDS: Guaifenesin DM 100-10/5 ML UDCUP PO PRN ×3 (08:47→21:37)
[2021-08-06] MEDS: Acetaminophen 325 MG TAB PO PRN (08:47)
[2021-08-06 09:26] LABS: #Eosinphils 0.2 thou/uL (0.0-0.7); #Lymphocytes 1.4 thou/uL (1.20-3.40); #Monocytes 0.9 thou/uL (0.11-0.59); #Neutrophils 6.9 thou/uL (1.40-6.50); %Basophils 0.3 % (0.0-1.0); %Eosinophils 1.7 % (0.0-10.0); %Lymphocytes 14.8 % (21.0-51.0); %Monocytes 9.2 % (0.0-10.0); %Neutrophils 74.1 % (42.0-75.0); Hemoglobin 8.5 g/dL (12.0-16.0); Mean Corpuscular HGB CONC 32.7 g/dL (32.0-36.0); Mean Corpuscular Hemoglobin 27.6 pg (27.0-31.0); Mean Corpuscular Volume 84.5 fL (78.0-98.0); Mean Platelet Volume 8.2 fL (7.4-10.4); Platelet Count 214 thou/uL (130-400); Red Blood Cell (RBC) Count 3.09 mill/uL (4.20-5.40); White Blood Cell (WBC) Count 9.3 thou/uL (4.8-10.8)
[2021-08-06] MEDS: HYDROcodone/Acetaminophen 5/325 mg Tablet PO PRN (21:37)
[2021-08-06] MEDS: Enoxaparin Sodium 30 MG/0.3 ML SYRINGE SC SCH (21:38)
[2021-08-07 05:10] LABS: #Eosinphils 0.2 thou/uL (0.0-0.7); #Lymphocytes 1.7 thou/uL (1.20-3.40); #Monocytes 0.9 thou/uL (0.11-0.59); #Neutrophils 6.9 thou/uL (1.40-6.50); %Basophils 0.4 % (0.0-1.0); %Lymphocytes 17.8 % (21.0-51.0); %Monocytes 9.1 % (0.0-10.0); %Neutrophils 70.6 % (42.0-75.0); Hemoglobin 8.4 g/dL (12.0-16.0); Mean Corpuscular HGB CONC 33.8 g/dL (32.0-36.0); Mean Corpuscular Hemoglobin 28.5 pg (27.0-31.0); Mean Corpuscular Volume 84.3 fL (78.0-98.0); Mean Platelet Volume 8.1 fL (7.4-10.4); Platelet Count 241 thou/uL (130-400); RBC Distribution Width 13.9 % (11.5-14.5); Red Blood Cell (RBC) Count 2.95 mill/uL (4.20-5.40); White Blood Cell (WBC) Count 9.7 thou/uL (4.8-10.8)
[2021-08-07 05:36] LABS: Anion Gap 14 mmol/L (10-20); BUN (Urea Nitrogen) 28 mg/dL (9.8-20.1); Calc. Creatinine Clearance 29 mL/min (70-130); Carbon Dioxide 19 mmol/L (22-29); Chloride 104 mmol/L (98-107); Glucose 195 mg/dL (70-105); Potassium 3.6 mmol/L (3.5-5.1); Sodium 133 mmol/L (136-145)
[2021-08-07] MEDS ORDERED: Ondansetron PF 4 MG/2 ML Vial IVP PRN (05:47)
[2021-08-07] MEDS: Furosemide 20 MG/2 ML VIAL SLOW IVP SCH (06:00)
[2021-08-07] MEDS: HumaLOG 300 UNITS/3 ML VIAL SC PRN (06:19)
[2021-08-07] MEDS: hydrALAZINE 25 MG TAB PO SCH ×3 (09:40→21:35)
[2021-08-07] MEDS: Senokot S 8.6-50 MG TAB PO SCH ×2 (09:41→21:34)
[2021-08-07] MEDS: Metoprolol Tartrate 50 MG TAB PO SCH ×2 (09:41→21:35)
[2021-08-07] MEDS: Amlodipine 10 MG TAB PO SCH (09:41)
[2021-08-07] MEDS: Famotidine/PF 20 mg/2ml Vial SLOW IVP SCH (09:44)
[2021-08-07] MEDS: Guaifenesin DM 100-10/5 ML UDCUP PO PRN (17:12)
[2021-08-07] MEDS: Enoxaparin Sodium 30 MG/0.3 ML SYRINGE SC SCH (21:34)
[2021-08-08 05:41] LABS: #Eosinphils 0.1 thou/uL (0.0-0.7); #Lymphocytes 2.1 thou/uL (1.20-3.40); #Monocytes 0.7 thou/uL (0.11-0.59); #Neutrophils 5.9 thou/uL (1.40-6.50); %Basophils 0.3 % (0.0-1.0); %Eosinophils 1.2 % (0.0-10.0); %Lymphocytes 23.7 % (21.0-51.0); %Monocytes 7.5 % (0.0-10.0); %Neutrophils 67.3 % (42.0-75.0); Hemoglobin 8.1 g/dL (12.0-16.0); Mean Corpuscular HGB CONC 33.7 g/dL (32.0-36.0); Mean Corpuscular Hemoglobin 28.4 pg (27.0-31.0); Mean Corpuscular Volume 84.4 fL (78.0-98.0); Mean Platelet Volume 8.1 fL (7.4-10.4); Platelet Count 247 thou/uL (130-400); RBC Distribution Width 13.8 % (11.5-14.5); Red Blood Cell (RBC) Count 2.85 mill/uL (4.20-5.40); White Blood Cell (WBC) Count 8.7 thou/uL (4.8-10.8)
[2021-08-08 06:12] LABS: Anion Gap 16 mmol/L (10-20); BUN (Urea Nitrogen) 25 mg/dL (9.8-20.1); Calc. Creatinine Clearance 27 mL/min (70-130); Calcium 8.3 mg/dL (7.8-10.44); Carbon Dioxide 18 mmol/L (22-29); Chloride 103 mmol/L (98-107); Glucose 177 mg/dL (70-105); Potassium 3.8 mmol/L (3.5-5.1); Sodium 133 mmol/L (136-145)
[2021-08-08] MEDS: hydrALAZINE 25 MG TAB PO SCH ×3 (09:11→21:08)
[2021-08-08] MEDS: Senokot S 8.6-50 MG TAB PO SCH ×2 (09:12→21:08)
[2021-08-08] MEDS: Amlodipine 10 MG TAB PO SCH (09:12)
[2021-08-08] MEDS: Famotidine/PF 20 mg/2ml Vial SLOW IVP SCH (09:12)
[2021-08-08] MEDS: Metoprolol Tartrate 50 MG TAB PO SCH ×2 (09:12→21:09)
[2021-08-08] MEDS: HYDROcodone/Acetaminophen 5/325 mg Tablet PO PRN (09:22)
[2021-08-08] MEDS: Guaifenesin DM 100-10/5 ML UDCUP PO PRN ×2 (09:22→21:24)
[2021-08-08] MEDS ORDERED: methylPREDNISolone Sod Succ 40 MG VIAL IVP SCH (13:00)
[2021-08-08] MEDS: cefTRIAXone\\ROCEPHIN 1 GM in Sodium Chloride 0.9% 100 ML IVPB SCH (13:43)
[2021-08-08] MEDS: Azithromycin 500 MG in Sodium Chloride 0.9% 250 ML 250 ML IVPB SCH (15:40)
[2021-08-08 19:02] LABS: Creatinine, Urine 54.54 mg/dL (47-110)
[2021-08-08] MEDS: methylPREDNISolone Sod Succ 40 MG VIAL IVP SCH (21:07)
[2021-08-08] MEDS: Enoxaparin Sodium 30 MG/0.3 ML SYRINGE SC SCH (21:07)
[2021-08-08 21:13] LABS: A/G Ratio 0.9 (0.7-1.7); Albumin 2.4 g/dL (2.9-4.4); Alpha 1 0.4 g/dL (0.0-0.4); Alpha 2 0.6 g/dL (0.4-1.0); Beta 0.8 g/dL (0.7-1.3); Gamma 0.8 g/dL (0.4-1.8); Globulin, Total 2.6 g/dL (2.2-3.9); M-Spike Not Observed g/dL (Not Observed)
[2021-08-08] MEDS: Acetaminophen 325 MG TAB PO PRN (21:25)
[2021-08-09 05:37] LABS: #Lymphocytes 1.1 thou/uL (1.20-3.40); #Neutrophils 7.1 thou/uL (1.40-6.50); %Basophils 0.2 % (0.0-1.0); %Eosinophils 0.3 % (0.0-10.0); %Lymphocytes 13.6 % (21.0-51.0); %Monocytes 0.3 % (0.0-10.0); %Neutrophils 85.6 % (42.0-75.0); Mean Corpuscular HGB CONC 32.9 g/dL (32.0-36.0); Mean Corpuscular Hemoglobin 27.7 pg (27.0-31.0); Mean Corpuscular Volume 84.2 fL (78.0-98.0); Mean Platelet Volume 8.1 fL (7.4-10.4); Platelet Count 274 thou/uL (130-400); RBC Distribution Width 13.6 % (11.5-14.5); Red Blood Cell (RBC) Count 3.25 mill/uL (4.20-5.40); White Blood Cell (WBC) Count 8.2 thou/uL (4.8-10.8)
[2021-08-09] MEDS: HumaLOG 300 UNITS/3 ML VIAL SC PRN ×2 (05:49→11:35)
[2021-08-09 05:57] LABS: Anion Gap 21 mmol/L (10-20); BUN (Urea Nitrogen) 31 mg/dL (9.8-20.1); Calc. Creatinine Clearance 25 mL/min (70-130); Calcium 8.1 mg/dL (7.8-10.44); Carbon Dioxide 13 mmol/L (22-29); Chloride 100 mmol/L (98-107); Glucose 299 mg/dL (70-105); Sodium 129 mmol/L (136-145)
[2021-08-09] MEDS: methylPREDNISolone Sod Succ 40 MG VIAL IVP SCH (09:17)
[2021-08-09] MEDS: Famotidine/PF 20 mg/2ml Vial SLOW IVP SCH (09:17)
[2021-08-09] MEDS: hydrALAZINE 25 MG TAB PO SCH ×2 (09:17→14:41)
[2021-08-09] MEDS: Metoprolol Tartrate 50 MG TAB PO SCH (09:18)
[2021-08-09] MEDS: Amlodipine 10 MG TAB PO SCH (09:18)
[2021-08-09] MEDS: Senokot S 8.6-50 MG TAB PO SCH (09:18)
[2021-08-09] MEDS: Guaifenesin DM 100-10/5 ML UDCUP PO PRN (11:34)
[2021-08-09] MEDS: cefTRIAXone\\ROCEPHIN 1 GM in Sodium Chloride 0.9% 100 ML IVPB SCH (13:49)
[2021-08-09] MEDS: Azithromycin 500 MG in Sodium Chloride 0.9% 250 ML 250 ML IVPB SCH (14:41)
[2021-08-09 15:59] VITALS: BP 125/60; TEMP 98.1
[2021-08-12 18:09] LABS: Albumin-Ur 69.2 % (.); Alpha 1 - Ur 7.7 % (.); Alpha 2 - Ur 7.7 % (.); Gamma-Ur 10.4 % (.); M-Spike,% Not Observed % (Not Observed); Protein, Urine 463.3 mg/dL (Not Estab.)
== END 2021-08-09 16:42 | disposition home or self-care (01) | DRG 291 ==
LOC: ERS 13:26 → 2SW 17:59 → OBSVTOIN 08-05 12:12
PROVIDERS: ADMIT Internal Medicine; ATTEND Internal Medicine
DX: I11.0 Hypertensive heart disease with heart failure (principal); Z20.822 Contact with and (suspected) exposure to COVID-19; J96.01 Acute respiratory failure with hypoxia; I50.33 Acute on chronic diastolic (congestive) heart failure; N17.9 Acute kidney failure, unspecified; N18.4 Chronic kidney disease, stage 4 (severe); J44.9 Chronic obstructive pulmonary disease, unspecified; E11.22 Type 2 diabetes mellitus with diabetic chronic kidney disease; T38.0X5A Adverse effect of glucocorticoids and synthetic analogues, initial encounter; D72.829 Elevated white blood cell count, unspecified; E11.65 Type 2 diabetes mellitus with hyperglycemia; I16.0 Hypertensive urgency; K59.01 Slow transit constipation; D63.1 Anemia in chronic kidney disease; Z87.440 Personal history of urinary (tract) infections; Z79.899 Other long term (current) drug therapy; Z79.84 Long term (current) use of oral hypoglycemic drugs; Z79.52 Long term (current) use of systemic steroids
CPT/HCPCS: 0240U; 36415; 36416; 71045; 71250; 74022; 74177; 76705; 80048; 80053; 81003; 81015; 82570; 83605; 83690; 83880; 84156; 84165; 84166; 84484; 85025; 87040; 87086; 93005; 93306; 94640; 96365; 96372; 96375; 96376; G0378; J0456; J0696; J1650; J1815; J1940; J2405; J2543; J2920; J3490; J7050; J7620; S0028